=== PATIENT | male | born 1945 | race Caucasian/White ===

== ENCOUNTER 2018-10-26 11:27 | Observation (INO) | payer OTHER ==
[~2018-10-26] VITALS: Ht 180.3 cm; Wt 134.5 kg
[2018-10-26] MEDS ORDERED: ASPIRIN 325 MG TABLET ONE (11:48)
[2018-10-26 11:56] LABS: BASOPHILS % (AUTO) 0.4 % (0.0-5.0); EOSINOPHILS % (AUTO) 1.9 % (0.0-8.0); HEMATOCRIT 43.8 % (42-54); LYMPHOCYTES % (AUTO) 25.7 % (21.0-51.0); MEAN CORPUSCULAR HEMOGLOBIN 29.7 pg (27.0-33.0); MEAN CORPUSCULAR HGB CONC 33.4 g/dL (32.0-36.0); MEAN CORPUSCULAR VOLUME 88.9 fL (79-99); MONOCYTES % (AUTO) 11.3 % (3.0-13.0); NEUTROPHILS % (AUTO) 60.7 % (40.0-77.0); NUCLEATED RED BLOOD CELLS 0.1 % (0.0-0.19); PLATELET COUNT (AUTO) 221 K/uL (130-400); RED BLOOD CELL COUNT(AUTO) 4.92 MIL/uL (4.50-6.20); RED CELL DISTRIBUTION WIDTH 14.5 % (11.0-15.5); WHITE BLOOD COUNT (AUTO) 7.8 K/uL (4.8-10.8)
[2018-10-26 12:07] LABS: CREATININE 0.9 mg/dL (0.5-1.5)
[2018-10-26 12:12] LABS: INR 0.93 (0.85-1.15); PARTIAL THROMBOPLASTIN TIME 27.2 SEC (26.3-35.5); PROTHROMBIN TIME 9.8 SEC (9.6-11.6)
[2018-10-26 12:20] LABS: ALBUMIN 3.6 g/dL (3.5-5.0); BILIRUBIN,TOTAL 0.9 mg/dL (0.2-1.0)
[2018-10-26] MEDS ORDERED: NITROGLYCERIN 1GM/1 INCH PACKET TD ONE (12:33)
[2018-10-26] MEDS ORDERED: FUROSEMIDE 10 MG/ML 2ML VIAL ONE (13:44)
[2018-10-26] MEDS ORDERED: MORPHINE SULFATE 2 MG/ML 1ML SYG IV PRN (14:00)
[2018-10-26] MEDS ORDERED: ONDANSETRON HCL 4 MG/2 ML VIAL IV PRN (14:00)
[2018-10-26] MEDS ORDERED: NITROGLYCERIN 0.4 MG SL TAB SL PRN (14:00)
[2018-10-26 14:21] LABS: CHOLESTEROL 168 mg/dL (<200); HDL CHOLESTEROL 46 mg/dL (29-71); LDL DIRECT 107 mg/dL (0-99); TRIGLYCERIDES 129 mg/dL (30-200)
[2018-10-26 14:23] LABS: HEMOGLOBIN A1C 6.2 % (4.0-6.0)
[2018-10-26 18:05] LABS: CREATINE KINASE, TOTAL 58 U/L (21-232); MYOGLOBIN 50 ng/mL (10-92); TROPONIN I < 0.04 ng/mL (0.00-0.06)
[2018-10-26] MEDS: INSULIN HUMULIN R 100 UNIT/ML 3ML SQ SCH (21:00)
[2018-10-26 21:16] VITALS: BP 153/59
[2018-10-26] MEDS: PHARMACY COMMUNICATION MISC SCH (22:15)
--- NOTE | 2018-10-26 22:21 | NUR ---
ADMISSION. PT ADMITTED INTO ROOM 302. PT AWAKE, ALERT AND RESPONSIVE, NO C/O CHEST PAIN OR DISCOMFORT AT THIS TIME. PT ORIENTED TO ROOM, CALL FARAH IN REACH, BED IN LOWEST POSITION. Addendum: 10/26/18 at 2240 by RUSSELL TAYLOR RN Amended: Links added.
[2018-10-26] MEDS: ATORVASTATIN CALCIUM 10 MG TABLET PO SCH (22:22)
[2018-10-26] MEDS: METOPROLOL TARTRATE 25 MG TAB PO SCH (22:22)
[2018-10-26] MEDS: FUROSEMIDE 10 MG/ML 2ML VIAL IV SCH (22:23)
[2018-10-26] MEDS ORDERED: ACETAMINOPHEN 325 MG TAB PO PRN (23:30)
[2018-10-26 23:32] VITALS: BP 115/68
[2018-10-27 00:53] LABS: CREATINE KINASE, TOTAL 54 U/L (21-232); MYOGLOBIN 40 ng/mL (10-92); TROPONIN I < 0.04 ng/mL (0.00-0.06)
[2018-10-27] MEDS: FUROSEMIDE 10 MG/ML 2ML VIAL IV SCH (02:04)
[2018-10-27] MEDS: PHARMACY COMMUNICATION MISC SCH (02:15)
[2018-10-27 03:54] VITALS: BP 109/63
--- NOTE | 2018-10-27 05:00 | NUR ---
PT STATUS. PT EXPERIENCED A 2 SEC PAUSE. PT ALERT AND RESPONSIVE, CO C/O CHEST PAIN OR DISTRESS AT THIS TIME. JW DUPREE MADE AWARE, NEW ORDERS RECEIVE (REFER TO EMR).
[2018-10-27 05:50] LABS: BASOPHILS % (AUTO) 0.5 % (0.0-5.0); EOSINOPHILS % (AUTO) 2.5 % (0.0-8.0); HEMATOCRIT 40.3 % (42-54); LYMPHOCYTES % (AUTO) 27.2 % (21.0-51.0); MEAN CORPUSCULAR HEMOGLOBIN 30.1 pg (27.0-33.0); MEAN CORPUSCULAR HGB CONC 33.9 g/dL (32.0-36.0); MEAN CORPUSCULAR VOLUME 88.9 fL (79-99); MONOCYTES % (AUTO) 12.9 % (3.0-13.0); NEUTROPHILS % (AUTO) 56.9 % (40.0-77.0); PLATELET COUNT (AUTO) 220 K/uL (130-400); RED BLOOD CELL COUNT(AUTO) 4.53 MIL/uL (4.50-6.20); RED CELL DISTRIBUTION WIDTH 14.3 % (11.0-15.5); WHITE BLOOD COUNT (AUTO) 6.8 K/uL (4.8-10.8)
[2018-10-27 06:01] LABS: MAGNESIUM 1.9 mg/dL (1.80-2.40); POTASSIUM 3.9 mmol/L (3.5-5.1)
[2018-10-27] MEDS: INSULIN HUMULIN R 100 UNIT/ML 3ML SQ SCH ×2 (06:06→21:00)
[2018-10-27 08:00] VITALS: BP 116/74
--- NOTE | 2018-10-27 08:00 | NUR ---
AM SHIFT ASSESSMENT.
[2018-10-27] MEDS ORDERED: ASPIRIN 325 MG TABLET PO SCH (09:00)
[2018-10-27] MEDS: METOPROLOL TARTRATE 25 MG TAB PO SCH ×2 (09:09→21:31)
[2018-10-27] MEDS: PANTOPRAZOLE SODIUM 40 MG TABLET.DR PO SCH (09:10)
[2018-10-27] MEDS: ENOXAPARIN SODIUM 40 MG/0.4 ML SYRINGE SQ SCH (09:11)
--- NOTE | 2018-10-27 09:18 | NUR ---
Nutrition Intervention: Nutrition consult due to BLE Swelling. Pt. admitted with Dx of chest pain. Pt. on Heart Healthy diet with good p.o. intake, per pt. Labs reviewed(Alb 3.6). LBM: 10/26/18. SR-21, elastic. BMI: 41.9, obesity grade 2 for age. Pt. refused Heart Healthy diet education; stated has been educated in the past and has diet information at home. Pt. allowed RD to leave Heart Healthy diet education material with him. Pt. voiced no questions regarding diet. Recommendations: 1) Continue current diet. 2) Continue to monitor pt's nutritional status. 3) Consult RD as nutrition concerns arise. Addendum: 10/27/18 at [address] Amended: Links added.
[2018-10-27 12:00] VITALS: BP 107/51
--- NOTE | 2018-10-27 13:47 | NUR ---
DR. SIERRA IN TO SEE PATIENT NOW.
--- NOTE | 2018-10-27 14:28 | NUR ---
[facility] Pt is [place] from [place], stays at [facility] with Dorene [phone]. Pt is independent, has cane, no in home care services, no PCP in [place], uses [facility] or [facility]. [place] Addendum: 10/27/18 at 1429 by TAYLOR AZUL Amended: Links added.
--- NOTE | 2018-10-27 15:50 | NUR ---
NOTIFIED OF HIGH D-DIMER RESULTS. ([id number])
[2018-10-27 16:00] VITALS: BP 125/70
[2018-10-27] MEDS ORDERED: IOHEXOL 350 MG/ML 100ML INFUS..BTL IV ONE (16:07)
--- NOTE | 2018-10-27 17:40 | NUR ---
TO RAD DEPT NOW FOR CT ANGIO PULMONARY PROTOCOL.
[2018-10-27 20:00] VITALS: BP 125/59
[2018-10-27] MEDS: ATORVASTATIN CALCIUM 10 MG TABLET PO SCH (21:32)
[2018-10-28 00:25] VITALS: BP 125/62
[2018-10-28 04:00] VITALS: BP 112/50
[2018-10-28] MEDS: INSULIN HUMULIN R 100 UNIT/ML 3ML SQ SCH ×2 (07:30→11:30)
[2018-10-28 08:00] VITALS: BP 121/60
[2018-10-28] MEDS ORDERED: REGADENOSON 0.4 MG/5 ML PF SYG IVP SCH (08:00)
[2018-10-28] MEDS: METOPROLOL TARTRATE 25 MG TAB PO SCH (11:16)
[2018-10-28] MEDS: PANTOPRAZOLE SODIUM 40 MG TABLET.DR PO SCH (11:17)
[2018-10-28] MEDS: ENOXAPARIN SODIUM 40 MG/0.4 ML SYRINGE SQ SCH (11:17)
[2018-10-28 12:00] VITALS: BP 133/54
== END 2018-10-28 16:59 | disposition home or self-care (01) ==
LOC: EDH 11:27 → EDHIP 13:52 → 3AH 20:39
PROVIDERS: ADMIT Hospitalist; ATTEND Hospitalist
DX: R07.89 Other chest pain (principal); I10 Essential (primary) hypertension; E78.5 Hyperlipidemia, unspecified; E66.9 Obesity, unspecified; I25.10 Atherosclerotic heart disease of native coronary artery without angina pectoris; E11.9 Type 2 diabetes mellitus without complications; D68.51 Activated protein C resistance; H91.90 Unspecified hearing loss, unspecified ear; I25.2 Old myocardial infarction; I49.3 Ventricular premature depolarization; Z87.891 Personal history of nicotine dependence; Z95.5 Presence of coronary angioplasty implant and graft; Z96.651 Presence of right artificial knee joint; Z98.84 Bariatric surgery status; Z88.0 Allergy status to penicillin; Z88.5 Allergy status to narcotic agent
CPT/HCPCS: 36415 ×2; 71045; 71275; 78452; 80048; 80053; 80061; 82550 ×3; 82948 ×7; 83036; 83735 ×2; 83874 ×3; 83880; 84484 ×3; 85025 ×2; 85378; 85610; 85730; 93005 ×2; 93017; 93970; 96372 ×2; 96374; 99284; A9500 ×2; G0378 ×51; J1650 ×2; J1940 ×2; J2785; Q9967